=== PATIENT | male | born 1960 | race Caucasian/White ===

== ENCOUNTER 2017-01-04 07:06 | Inpatient (IN) | payer OTHER ==
[2017-01-02 16:41] LABS: BASOPHILS 0.4 %; BASOPHILS ABSOLUTE 0.03 10/3/uL (0.0-0.16); EOSINOPHILS 2.6 %; EOSINOPHILS ABSOLUTE 0.21 10/3/uL (0.0-0.53); HEMATOCRIT 42.7 % (40.0-51.0); HEMOGLOBIN 14.4 g/dL (13.6-17.8); IMMATURE GRANULOCYTES 0.2 %; IMMATURE GRANULOCYTES ABSOLUTE 0.02 10/3/uL (0.0-0.11); LYMPHOCYTES 26.6 %; LYMPHOCYTES ABSOLUTE 2.15 10/3/uL (0.67-4.30); MEAN CORPUS HGB CONC 33.7 g/dL (32.0-36.0); MEAN CORPUSCULAR HEMOGLOB 30.5 pg (26.0-34.0); MEAN CORPUSCULAR VOLUME 90.5 fL (80-100); MEAN PLATELET VOLUME 11.3 fL (9.2-13.0); MONOCYTES 8.3 %; MONOCYTES ABSOLUTE 0.67 10/3/uL (0.21-1.20); NEUTROPHILS 61.9 %; NEUTROPHILS ABSOLUTE 5.01 10/3/uL (2.02-8.40); PLATELET COUNT 193 10/3/uL (150-400); RBC DISTRIBUTION WIDTH 13.8 % (12.0-16.0); RED CELL COUNT 4.72 10/6/uL (4.7-6.1); WHITE BLOOD CELLS 8.1 10/3/uL (4.5-10.5)
[2017-01-02 16:42] LABS: MANUAL DIFF NO %
[2017-01-02 16:47] LABS: INTERNATIONAL NORMAL RATI 1.1 UNITS (-); PROTIME (NOT ORD) 13.9 SEC (12.0-14.5)
[2017-01-02 16:53] LABS: ASCORBIC ACID (UR NOT ORDER) NEG (NEG); BILIRUBIN, URINE NEGATIVE (NEG); KETONE, URINE NEGATIVE (NEG); LEUKOCYTE ESTERASE(NOT OR NEG (NEG); WBC (NOT ORDERED) (RFLEX) < 1 (0-5)
[2017-01-02 18:10] LABS: BUN (BLOOD UREA NITROGEN) 12 MG/DL (6-23); CALCIUM, SERUM 9.4 MG/DL (8.5-10.4); CHLORIDE, SERUM 108 MMOL/L (96-112); CO2 (CARBON DIOXIDE) 28 MMOL/L (24-34); CREATININE 0.94 MG/DL (0.70-1.30); GFR AFRICAN AMERICAN 103 ML/MIN (>=60); GFR NON AFRICAN AMERICAN 89 ML/MIN (>=60); GLUCOSE, SERUM 89 MG/DL (60-99); POTASSIUM, SERUM 4.2 MMOL/L (3.5-5.3); SODIUM, SERUM 145 MMOL/L (135-148)
--- NOTE | ~2017-01-04 | CN ---
Consultation Report [facility] [address] [place]. [address] NAME: HILTON GUIDRY : 56 STATUS : DIS IN PAT#: [id number] AGE: 56 ADM/REG DATE : 01/04/17 MR#: [id number] REPORT SERV DATE: 01/05/17 DICTATED BY: MICHEL KOO DATE: 01/05/17 REPORT STATUS : Draft TRANSCRIBED BY: MODL DATE: 01/05/17 CARDIOLOGY CONSULTATION DATE OF CONSULTATION: 01/05/2017 REASON FOR CONSULTATION: Bradycardia. HISTORY OF PRESENT ILLNESS: Mr. Guidry is a very pleasant 56-year-old male whom we have been asked to see for evaluation of arrhythmia and bradycardia postoperatively. 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 He underwent left shoulder arthroplasty yesterday afternoon. His rhythm was noted to have first-degree AV block with some evidence of second-degree AV block with intermittent skipped beats. He has been asymptomatic with no dizziness or lightheadedness. We are asked to see him in this context. Shortly after we were called to see him, he was noted to have more frequent skipped beats with a reported heart rate in the high 30s. Again, he was asymptomatic during this. We have obtained an EKG and I have evaluated telemetry. Prior to being admitted, he denies any presyncope, syncope, or significant change in his exercise capacity. He has a general production laborer, Dr. Gonzales, at [place] and he has been following with her for many years. PAST MEDICAL HISTORY: Cardiac history is noted above. Additionally, the patient had a history of PE in 09/2015 and was subsequently on Eliquis for six months. He has sleep apnea. SURGICAL HISTORY: Hemicolectomy, appendectomy, bioprosthetic AVR/root repair, and tonsillectomy. MEDICATIONS: Reviewed home medications are notable for aspirin 81, atenolol 50, and losartan 100. ALLERGIES: TO MORPHINE. FAMILY HISTORY: This patient's at approximately age 88. SOCIAL HISTORY: The patient is single. He has no children. He is a lifelong nonsmoker. He drinks two beers three times per week. Denies illicits. He works were for [employer]. REVIEW OF SYSTEMS: Per HPI. Otherwise, negative. Consultation Report [facility] [id number] [place]. [address] NAME: HILTON GUIDRY : 56 STATUS : DIS IN PAT#: [id number] AGE: 56 ADM/REG DATE : 01/04/17 MR#: [id number] REPORT SERV DATE: 01/05/17 DICTATED BY: MICHEL KOO DATE: 01/05/17 REPORT STATUS : Draft TRANSCRIBED BY: SHIRLEY DATE: 01/05/17 PHYSICAL EXAMINATION: VITAL SIGNS: Temperature 99.2, pulse is 70, blood pressure 124/59, respiratory rate 20. GENERAL: Appears comfortable. HEENT: Sclerae anicteric; mucous membranes moist. NECK: No JVD. Thyroid not tender or enlarged CARDIOVASCULAR: Regular rhythm with normal S1/S2. No murmurs, rubs, or gallop. PULMONARY: Lung neil CTA. ABDOMEN: Soft, nontender, no masses EXTREMITIES: Warm, no edema. NEUROLOGIC: Grossly without deficits LABORATORY DATA: Labs reviewed. Potassium 4.5, creatinine 1.0. Hemoglobin 13.0. EKG on 01/05/2017, time 1241 hours, sinus rhythm, rate 72, normal QRS morphology, possible old inferior ID. Telemetry was reviewed. I see evidence of first-degree AV block and 2:1 block, Mobitz second-degree type 1 versus 2. IMPRESSIONS/RECOMMENDATIONS: 1. Bradycardia with 2:1 block, intermittent. 2. History of thoracic aortic aneurysm repair and bioprosthetic aortic valve. 3. Hypertension. 4. History of paroxysmal atrial fibrillation with no recurrence in over a year. After reviewing the rhythm strips and EKGs, the patient clearly has transient conduction system disease, either at the level of AV node or below the node. 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 Contributing factors may be increased vagotonia and chronic use of beta- saroj. I would proceed as follows: Discontinue beta saroj and place the patient on the outpatient Holter. There seems to be a low likelihood of progression to more significant heart block for the reasons stated above. He has a close relationship with his primary general production laborer, Dr. Gonzales, and I have encouraged him to see her in a couple of weeks, ideally, after the results of the Holter are available so she can guide management and to avoid beta saroj until then. Otherwise, he can be discharged today. Thank you for the consultation. Please call if any questions or evaluation for any profound dizziness or lightheadedness or any syncope. He understands. Otherwise, it would be reasonable to discharge him today. Thank you for the consultation. We will call you. JAYCE/SHIRLEY Michel Brown Consultation Report [address] [place]. [address] NAME: HILTON GUIDRY : 56 STATUS : DIS IN PAT#: [id number] AGE: 56 ADM/REG DATE : 01/04/17 MR#: [id number] REPORT SERV DATE: 01/05/17 DICTATED BY: MICHEL KOO DATE: 01/05/17 REPORT STATUS : Draft TRANSCRIBED BY: SHIRLEY DATE: 01/05/17 MD [place] / [id number] CC: Dolores Palma M.D.
--- NOTE | ~2017-01-04 | OP ---
Record Of Operation [facility] [address] [place]. [address] NAME: MIR GUIDRY : 56 STATUS : ADM IN PAT#: [id number] AGE: 56 ADM/REG DATE : 01/04/17 MR#: [id number] REPORT SERV DATE: 01/05/17 DICTATED BY: NICO DICKEY DATE: 01/04/17 REPORT STATUS : Draft TRANSCRIBED BY: MODL DATE: 01/04/17 DATE OF PROCEDURE: 01/04/2017 SURGEON: Nico Dickey MD OPERATIVE ASSIST: CYNTHIA Milton COMPLICATIONS: None. ESTIMATED BLOOD LOSS: Less than 150 mL. DISPOSITION: Stable to recovery room. ANESTHESIA: General with interscalene block augmentation for postoperative pain control. PREOPERATIVE DIAGNOSES: 1. Left shoulder pain. 2. Glenohumeral joint osteoarthritis recalcitrant to conservative care. POSTOPERATIVE DIAGNOSES: 1. Left shoulder pain. 2. Glenohumeral joint osteoarthritis recalcitrant to conservative care. OPERATIVE PROCEDURE: 1. Left shoulder examination under anesthesia. 2. Left total shoulder arthroplasty using Biomet comprehensive total shoulder system. IMPLANTS USED: 4 mm medium glenoid component with Regenerex post 54 x 21 mm modular head with an E offset, and 11 x 83 mm mini stem with a standard taper adapter. OPERATIVE PROCEDURE: The diagnoses listed above as well as the recommended surgical procedure and risks and benefits thereof were discussed in full detail with Mir Guidry and family on the morning of 01/04/2017. The patient and family asked appropriate questions which were answered to their satisfaction. An informed consent was signed, witnessed, and place in the chart. The right upper extremity was marked for confirmation and an interscalene block was placed by the anesthesia team with good success. The patient was then wheeled to the operative arena where general endotracheal anesthesia was administered. The patient was placed in the beachchair positioner with all nonoperative extremities and head well padded and secured for the duration of the case. The patient received pre- operative antibiotics. A surgical pause was performed confirming both the correct patient as well as the proper surgical site and procedure. All present were in agreement. All standard anatomical landmarks as well as deltopectoral incision site were demarcated using a sterile marking pin. A 10-blade was used to create an 8 cm curvilinear incision just lateral to the coracoid process and directed towards the lateral insertion of the deltoid. The soft tissues were dissected down sharply to expose the deltopectoral fascia. Record Of Operation [facility] [address]. [address] NAME: MIR GUIDRY : 56 STATUS : ADM IN PAT#: [id number] AGE: 56 ADM/REG DATE : 01/04/17 MR#: [id number] REPORT SERV DATE: 01/05/17 DICTATED BY: NICO DICKEY DATE: 01/04/17 REPORT STATUS : Draft TRANSCRIBED BY: SHIRLEY DATE: 01/04/17 The cephalic vein and the fat stripe were identified. The vein was retracted medially using careful sharp dissection. Next, a Saravia White retractor was placed retracting the deltoid laterally and the pectoralis and coracobrachialis medially. The deltopectoral interval was the further exposed and the clavipectoral fascia was identified. Electrocautery was used to split the clavipectoral fascia exposing the anterior surface of the subscapularis. The lesser tuberosity was identified and the subscapularis was released 1 cm medial to the lesser tuberosity. The subscapularis was then tagged using Fiber Wire suture for later repair. The biceps tendon was then released and tagged as well for later tenodesis. The glenohumeral joint was then dislocated and the humeral head was brought out the operative wound very carefully. All osteophytes were then removed using a rongeur. Our starting awl was used with increasing sizes of diaphyseal reamers to obtain the best fit with excellent cortical chatter. The intramedullary cutting jig was then assembled and set with the appropriate version to meet the patient's normal anatomy. An oscillating saw was then used to make our proximal humeral cut. The proximal humeral portion of the head was then taken to the back table and measured and matched up with our trial implants. Next, the broaches were used in increasing sizes up to the size which fit most perfectly. The head protector was placed and the proximal humerus was retracted posteriorly and inferiorly out of the way of the glenoid. The labrum was then excised in full using electrocautery. All additional osteophytes and osteochondral loose bodies were removed. Next, the glenoid reamers were used to ream the glenoid down to a healthy bleeding bone surface. Our central peg hole was then drilled and our peg guide was used to drill the subsequent three peg holes. A coring drill was then used to core for the glenoid post. A trial glenoid was then placed and found to fit perfectly. Next, the cement was mixed and placed into the peg holes. A polyethylene glenoid was assembled with an appropriate post and tapped into place. An excellent scratch fit was obtained. Pulsatile lavage was used to irrigate this implant as well as the glenohumeral joint. The proximal humerus was again brought out the operative wound. Trial humeral head implants were then tested. The stem was implanted into the proximal humerus after copious irrigation with sterile saline. This was impacted into place. Our Versa Dial was set and then impacted on the back table with an excellent Hedrick-Taper fit. This was then placed into the proximal humeral stem component and impacted into place with excellent security. At this juncture, the glenohumeral joint was then reduced once again. The glenohumeral joint alignment was near anatomic. Irrigation was used under pulsatile lavage to irrigate out the operative wound as well as the implants. Bone holes had been predrilled through the lesser tuberosity and four #2 Fiber Wire sutures were passed through this region. These were then taken through the soft tissues laterally and then tied down to our previously placed subscapularis sutures. An excellent repair of the subscapularis was obtained back down to the lesser tuberosity with no instability whatsoever. The biceps tendon was then tenodesed. The rotator interval was then closed also with #2 Fiber Wire suture. This layer was then again washed out with pulsatile lavage and copious amounts of sterile normal saline. The deltopectoral interval was closed with 2-0 undyed Vicryl. 2-0 undyed Vicryl was used to close the subcutaneous layer and a running Monocryl was placed below the skin. Steri-Strips were applied. Sterile dressing was then secured with Medipore tape. The patient was placed in an Ultra-Sling for post-operative immobilization. The patient was then awakened from anesthesia without difficulty and transferred to the post-anesthesia care unit in stable condition where the postoperative examination was within normal limits understanding that Record Of Operation [facility] [address] [facility] [address]. [address] NAME: MIR GUIDRY : 56 STATUS : ADM IN PAT#: [id number] AGE: 56 ADM/REG DATE : 01/04/17 MR#: [id number] REPORT SERV DATE: 01/05/17 DICTATED BY: NICO DICKEY. DATE: 01/04/17 REPORT STATUS : Draft TRANSCRIBED BY: MODL DATE: 01/04/17 the interscalene block was still in affect. A lengthy discussion was held with the patient's family detailing all operative findings as well as procedures performed with all questions answered to their satisfaction. CCS/SHIRLEY Nico Dickey M.D. / [id number] CC: Dolores Palma M.D.
--- NOTE | ~2017-01-04 | HOLTER ---
Holter Monitor [facility] [address] [place]. [address] NAME: HILTON GUIDRY : 56 STATUS : DIS IN PAT#: [id number] AGE: 56 ADM/REG DATE : 01/04/17 MR#: [id number] REPORT SERV DATE: 01/08/17 DICTATED BY: ALEXANDER PERKINS DATE: 01/08/17 REPORT STATUS : Cancelled TRANSCRIBED BY: SHIRLEY DATE: 01/08/17 24-HOUR HOLTER MONITOR REPORT RESPONSIBLE PROVIDER: Froy Banerjee M.D. INDICATIONS: A 56-year-old male with first-degree AV block. RECORDING QUALITY: Overall quality of study is good. RHYTHM: Rhythm is sinus, which varies from 37 to 91 beats per minute with an average heart rate of 71 beats per minute. There was noted to be 2.3 second pause at 6:30 in the morning. VENTRICULAR ARRHYTHMIA: There is no ventricular ectopy. SUPRAVENTRICULAR ARRHYTHMIA: There is rare supraventricular ectopy. SYMPTOMS: Review of diary reveals no entries. CONCLUSION: No symptoms reported. Tendency to bradycardia with pause noted. Please see attached worksheet for further details. Definitions for premature beat frequency Approximately Rare <100 <0.1 % Occasional 100-1500 0.1 - 1.5 % Frequent >1500 >1.5 % ARMIDA/SHIRLEY Alexander Perkins M.D. / [id number]
[~2017-01-04 07:06] MED LIST: ASAB PO; ATEN50 PO; CO Q-10100 MG PO; COZAAR100 MG PO; FISH OIL1200 MG PO; LIVALO4 MG PO; MULTIVITAMI1 PO; PROBIOTIC PO
[2017-01-05 05:13] LABS: BUN (BLOOD UREA NITROGEN) 14 MG/DL (6-23); CALCIUM, SERUM 8.6 MG/DL (8.5-10.4); CHLORIDE, SERUM 108 MMOL/L (96-112); GFR AFRICAN AMERICAN 96 ML/MIN (>=60); GFR NON AFRICAN AMERICAN 83 ML/MIN (>=60); GLUCOSE, SERUM 96 MG/DL (60-99); POTASSIUM, SERUM 4.5 MMOL/L (3.5-5.3); SODIUM, SERUM 141 MMOL/L (135-148)
[2017-01-05 05:42] LABS: CO2 (CARBON DIOXIDE) 21 MMOL/L (24-34)
[2017-01-05 06:29] LABS: HEMATOCRIT 37.8 % (40.0-51.0)
[2017-01-05] MEDS ORDERED: ASABAYER PO (13:36)
[2017-01-05] MEDS ORDERED: DSS PO (13:37)
[2017-01-05] MEDS ORDERED: OXYCON10 PO (13:41)
[2017-01-05] MEDS ORDERED: PCET PO (13:42)
[2017-01-05] MEDS ORDERED: ZOFRAN4 PO (13:43)
== END 2017-01-05 14:20 | disposition home or self-care (01) | DRG 483 ==
LOC: SDC/OF 07:06 → PACU 14:25 → 1SO 15:28
PROVIDERS: Specialist
PROC: 0RRK0JZ Replacement of Left Shoulder Joint with Synthetic Substitute, Open Approach (ICD-10-PCS; principal; 2017-01-04 09:30)
DX: M19.012 Primary osteoarthritis, left shoulder (principal); I44.2 Atrioventricular block, complete; I97.89 Other postprocedural complications and disorders of the circulatory system, not elsewhere classified; I48.91 Unspecified atrial fibrillation; E66.9 Obesity, unspecified; I25.10 Atherosclerotic heart disease of native coronary artery without angina pectoris; I10 Essential (primary) hypertension; E78.5 Hyperlipidemia, unspecified; I49.8 Other specified cardiac arrhythmias; Y83.8 Other surgical procedures as the cause of abnormal reaction of the patient, or of later complication, without mention of misadventure at the time of the procedure; G47.33 Obstructive sleep apnea (adult) (pediatric); Z68.36 Body mass index [BMI] 36.0-36.9, adult; Z79.82 Long term (current) use of aspirin; Z79.899 Other long term (current) drug therapy; Z95.2 Presence of prosthetic heart valve; Z86.711 Personal history of pulmonary embolism; Z88.5 Allergy status to narcotic agent
CPT/HCPCS: 36415; 73030-LT; 80048; 81001; 85014; 85018; 85025; 85610; 86850; 86900; 86901; 87641; 88305; 88311; 93005; 97161-GP; A9270-GY; C1776; J0690; J1170; J2250; J2405; J2710; J2795; J3010